=== PATIENT | female | born 1965 | race Caucasian/White ===

== ENCOUNTER → 2020-12-23 09:27 | Outpatient (BNVA) | payer SELFPAY | PROVIDERS: PCP Nurse Practitioner Family; Visit Provider Nurse Practitioner Family | DX: F41.9 Anxiety disorder, unspecified (principal); F32.9 Major depressive disorder, single episode, unspecified; E11.9 Type 2 diabetes mellitus without complications; M54.5 Low back pain; G89.29 Other chronic pain; I10 Essential (primary) hypertension; G47.00 Insomnia, unspecified | CPT/HCPCS: 80053; 80061; 83036; 84443; 85025 ==

== ENCOUNTER → 2021-03-21 09:35 | Outpatient (BNVA) | payer SELFPAY | PROVIDERS: PCP Nurse Practitioner Family; Visit Provider Nurse Practitioner Family | DX: E11.9 Type 2 diabetes mellitus without complications (principal); G89.29 Other chronic pain; I10 Essential (primary) hypertension; G47.00 Insomnia, unspecified; M54.50 Low back pain, unspecified | CPT/HCPCS: 80053; 80061; 83036; 84443; 85025 ==

== ENCOUNTER → 2021-06-21 09:47 | Outpatient (BNVA) | payer SELFPAY | PROVIDERS: PCP Nurse Practitioner Family; Visit Provider Nurse Practitioner Family | DX: E11.9 Type 2 diabetes mellitus without complications (principal) | CPT/HCPCS: 80053; 80061; 83036; 84443; 85025 ==

== ENCOUNTER → 2021-09-09 09:55 | Outpatient (BNVA) | payer SELFPAY | PROVIDERS: PCP Nurse Practitioner Family; Visit Provider Nurse Practitioner Family | DX: I10 Essential (primary) hypertension (principal); E11.9 Type 2 diabetes mellitus without complications; F41.9 Anxiety disorder, unspecified; F32.9 Major depressive disorder, single episode, unspecified; G89.29 Other chronic pain; G47.00 Insomnia, unspecified | CPT/HCPCS: 80053; 80061; 83036; 84443; 85025 ==

== ENCOUNTER → 2021-11-14 09:41 | Outpatient (BNVA) | payer SELFPAY | PROVIDERS: PCP Nurse Practitioner Family; Visit Provider Nurse Practitioner Family | DX: E11.9 Type 2 diabetes mellitus without complications (principal); F41.9 Anxiety disorder, unspecified; F32.9 Major depressive disorder, single episode, unspecified; G47.00 Insomnia, unspecified; I10 Essential (primary) hypertension; G89.29 Other chronic pain | CPT/HCPCS: 83036 ==

== ENCOUNTER → 2022-02-02 09:14 | Outpatient (BNVA) | payer SELFPAY | PROVIDERS: PCP Nurse Practitioner Family; Visit Provider Nurse Practitioner Family | DX: E11.9 Type 2 diabetes mellitus without complications (principal) | CPT/HCPCS: 80053; 83036 ==

== ENCOUNTER → 2022-08-14 11:29 | Outpatient (BNVA) | payer SELFPAY | PROVIDERS: PCP Nurse Practitioner Family; Visit Provider Nurse Practitioner Family | DX: E11.9 Type 2 diabetes mellitus without complications (principal); I10 Essential (primary) hypertension; G89.29 Other chronic pain; F41.9 Anxiety disorder, unspecified; F32.9 Major depressive disorder, single episode, unspecified; G47.00 Insomnia, unspecified | CPT/HCPCS: 80053; 80061; 83036; 84443; 85025 ==

== ENCOUNTER → 2022-11-06 09:18 | Outpatient (BNVA) | payer SELFPAY | PROVIDERS: PCP Nurse Practitioner Family; Visit Provider Nurse Practitioner Family | DX: F41.9 Anxiety disorder, unspecified (principal); F32.9 Major depressive disorder, single episode, unspecified; G89.29 Other chronic pain; E11.9 Type 2 diabetes mellitus without complications; I10 Essential (primary) hypertension; G47.00 Insomnia, unspecified | CPT/HCPCS: 80053; 80061; 83036; 84443; 85025 ==

== ENCOUNTER → 2023-01-29 09:49 | Outpatient (BNVA) | payer SELFPAY | PROVIDERS: PCP Nurse Practitioner Family; Visit Provider Nurse Practitioner Family | DX: E11.9 Type 2 diabetes mellitus without complications (principal); I10 Essential (primary) hypertension | CPT/HCPCS: 80053; 80061; 83036; 84443; 85025 ==

== ENCOUNTER → 2023-04-24 09:50 | Outpatient (BNVA) | payer SELFPAY | PROVIDERS: PCP Nurse Practitioner Family; Visit Provider Nurse Practitioner Family | DX: E11.9 Type 2 diabetes mellitus without complications (principal); I10 Essential (primary) hypertension; F41.9 Anxiety disorder, unspecified; F32.9 Major depressive disorder, single episode, unspecified | CPT/HCPCS: 80053; 80061; 83036; 84443; 85025 ==

== ENCOUNTER 2024-07-19 09:23 | Inpatient (IN) | payer SELFPAY ==
[2024-07-19] VITALS (16 sets, daily range): BP systolic 124–203; BP diastolic 68–96; PULSE 89–105; RESP 18–22; TEMP 36.8–37.6; O2SAT 89–95; BMI 36.6; BMI 40.5
--- NOTE | 2024-07-19 09:47 | XRR_ITS ---
PROCEDURE INFORMATION: Exam: XR Chest Exam date and time: 07/19/2024 9:55 AM Age: 59 years old Clinical indication: Cough and fever; Additional info: Fever, cough TECHNIQUE: Imaging protocol: Radiologic exam of the chest. Views: 1 view. COMPARISON: No relevant prior studies available. FINDINGS: Lungs: Patchy infiltrate involves both lung bases. The upper lung nichols are clear. Pleural spaces: Unremarkable. No pleural effusion. No pneumothorax. Heart/Mediastinum: Unremarkable. No cardiomegaly. Bones/joints: Unremarkable. XR/XR chest 1V portable [id number] IMPRESSION: Bibasilar pneumonia
[2024-07-19 10:14] LABS: Basophils # 0.1 10^3/uL (0.0-0.1); Basophils % 0.7 %; Eosinophils % 0.3 %; Hematocrit 39.4 % (36-47); Lymphocytes # 2.3 10^3/uL (0.8-4.8); Lymphocytes % 16.3 %; Mean Corpuscular HGB Conc 32.2 g/dL (30-55); Mean Corpuscular Hemoglobin 27.1 pg (27-33); Mean Platelet Volume 10.3 fL (7.4-10.4); Monocytes # 0.9 10^3/uL (0.2-0.9); Monocytes % 6.4 %; Neutrophils # 10.51 10^3/uL (1.8-7.7); Neutrophils % 74.7 %; Nucleated Red Blood Cells % 0 %; Platelet Count 417 10^3/cmm (157-399); Red Blood Count 4.69 10^6/uL (3.85-5.65); Red Cell Distribution Width 12.5 % (12.1-15.1); White Blood Count 14.07 10^3/uL (3.29-11.43)
--- NOTE | 2024-07-19 10:14 | W.ED.URI ---
HPI - URI/Sore Throat General: Chief Complaint: Upper Respiratory Infection Stated Complaint: cough Time Seen by Provider: 07/19/24 09:38 History of Present Illness: 59-year-old female with a history of obesity, diabetes, hypertension who presents emergency room with a cough and shortness of breath for the last couple of weeks. Has been worsening over the last couple days. She has developed fevers to 102 or 3 she says. She has no history of COPD. No smoking history. Some pleuritic type chest pains. She has had a productive cough. She is attempted [id number] medications which has not helped. Related Data Home Medications ?Medication ?Instructions ?Recorded ?Confirmed Curalin 180 180 mg PO DAILY 07/19/24 07/19/24 amino acids (Amino Acid capsule) 1 cap PO DAILY 07/19/24 07/19/24 magnesium carb,citrate,oxide 300 mg PO DAILY 07/19/24 07/19/24 (Magnesium Complex) omega-3 fatty acids 1,000 mg 1,000 mg PO DAILY 07/19/24 07/19/24 capsule (Super [place]-3) Allergies Allergy/AdvReac Type Severity Reaction Status Date / Time No Known Allergies Allergy Unverified 04/24/23 09:28 Review of Systems Narrative: Constitutional symptoms: Negative except as documented in HPI. Skin symptoms: Negative except as documented in HPI. Eye symptoms: Negative except as documented in HPI. ENMT symptoms: Negative except as documented in HPI. Respiratory symptoms: Negative except as documented in HPI. Cardiovascular symptoms: Negative except as documented in HPI. Gastrointestinal symptoms: Negative except as documented in HPI. Genitourinary symptoms: Negative except as documented in HPI. Musculoskeletal symptoms: Negative except as documented in HPI. Neurologic symptoms: Negative except as documented in HPI. Psychiatric symptoms: Negative except as documented in HPI. Endocrine symptoms: Negative except as documented in HPI. PFSH ED PFSH: Medical History Insomnia Anxiety and depression Type 2 diabetes mellitus Essential hypertension Surgical History History of hernia surgery Family History Father Hypertension Social History (Reviewed 04/24/23 @ 10:03 by RICARDO Farrell Smoking and tobacco/nicotine status: never used tobacco/nicotine Second hand smoke exposure: Yes Alcohol intake: never Substance/Drug Use: never Adopted: No Caregiver/support person: No Lives independently: Yes Household members: spouse Housing: House Marital status: Number of children: 6 service: No Physical Exam Narrative: EXAM NARRATIVE: General: Alert, no acute distress. Skin: Warm, dry. Head: Normocephalic, atraumatic. Neck: Supple, trachea midline. Eye: Extraocular movements are intact. Ears, nose, mouth and throat: mucosa moist. Cardiovascular: Regular, Normal peripheral perfusion. Respiratory: Lungs are clear to auscultation, respirations are non-labored, breath sounds are equal, Symmetrical chest wall expansion. Gastrointestinal: Soft, Nontender, Non distended Musculoskeletal: Normal ROM, no deformity. Neurological: Alert and oriented, No focal neurological deficit observed. Psychiatric: Cooperative, appropriate mood & affect. Course Vital Signs: Vital signs: Vital Signs Temperature 98.2 F 07/19/24 09:45 Pulse Rate 92 07/19/24 11:18 Respiratory Rate 18 07/19/24 09:45 Blood Pressure 161/68 07/19/24 11:18 Pulse Oximetry 90 07/19/24 11:18 Oxygen Delivery Me thod Room Air 07/19/24 09:45 MDM - URI/Sore Throat Medical Decision Making Differential diagnosis for patient with shortness of breath includes but is not limited to and based on the above HPI, review of systems and physical exam: Pneumonia. Bronchitis. Asthma or COPD with acute exacerbation. Acute coronary syndrome / MD. Pulmonary embolism. Anxiety. Congestive heart failure. Viral infections including influenza and Covid-19. Atrial fibrillation. Anxiety. Pleural effusion. Pneumothorax. Orders placed to evaluate differential diagnosis based on the above differential, HPI and physical exam Chest x-ray: Bibasilar pneumonia. This was reviewed and interpreted by myself the emergency room physician. I also reviewed the radiology report. Lab Review: Laboratory results were reviewed and interpreted by myself the emergency room physician. Mild leukocytosis. No anemia. No renal failure. Her glucose is bit elevated at 297. Flu COVID and RSV are negative. I reviewed the patient's medical record. Reexamination: Patient walked briefly. O2 sats dropped into the mid 80s. Upon laying back in the bed she is fairly dyspneic. Tachypneic. Mild increased work of breathing. Consultation: I spoke with Dr. Clyde Coates who agrees to admission. Assessment and plan: Pneumonia Hypoxemia ?IV Levaquin and 1 L normal saline bolus. Blood cultures and lactate were sent. Lactate is negative. Patient does have a bit of a white count. However I do not feel she meets criteria for sepsis at this time. No further fluids were given. She is requiring oxygen and dyspneic with exertion so she is being admitted for continued IV antibiotics and for oxygen support. -I discussed the patient with the hospitalist on-call who is admitting the patient. - Discussed findings and plan with patient. Answered any questions. - All laboratory values were reviewed and interpreted personally by myself, the ER physician - All imaging was reviewed and interpreted personally by myself, the ER physician. - Evaluation and treatment of this problem were appropriate in the emergency setting Lab Data 07/19/24 10:01 07/19/24 10:01 Radiology Impressions Chest X-Ray 07/19/24 09:47 IMPRESSION: Bibasilar pneumonia Laboratory Results WBC 14.07 10^3/uL (3.29-11.43) H 07/19/24 10:01 RBC 4.69 10^6/uL (3.85-5.65) 07/19/24 10:01 Hgb 12.70 g/dL (11.27-16.99) 07/19/24 10:01 Hct 39.4 % (36-47) 07/19/24 10:01 MCV 84.0 fl (85-98) L 07/19/24 10:01 MCH 27.1 pg (27-33) 07/19/24 10:01 MCHC 32.2 g/dL (30-55) 07/19/24 10:01 RDW 12.5 % (12.1-15.1) 07/19/24 10:01 Plt Count 417 10^3/cmm (157-399) H 07/19/24 10:01 MPV 10.3 fL (7.4-10.4) 07/19/24 10:01 Neut % (Auto) 74.7 % 07/19/24 10:01 Lymph % (Auto) 16.3 % 07/19/24 10:01 Hinds % (Auto) 6.4 % 07/19/24 10:01 Eos % (Auto) 0.3 % 07/19/24 10:01 Baso % (Auto) 0.7 % 07/19/24 10:01 Neut # (Auto) 10.51 10^3/uL (1.8-7.7) H 07/19/24 10:01 Lymph # (Auto) 2.3 10^3/uL (0.8-4.8) 07/19/24 10:01 Hinds # (Auto) 0.9 10^3/uL (0.2-0.9) 07/19/24 10:01 Eos # (Auto) 0.0 10^3/uL (0.0-0.8) 07/19/24 10:01 Baso # (Auto) 0.1 10^3/uL (0.0-0.1) 07/19/24 10:01 Nucleated RBC % (auto) 0 % 07/19/24 10:01 Nucleated RBCs # 0.0 /100WBC 07/19/24 10:01 Sodium 134 mmol/L (136-145) L 07/19/24 10:01 Potassium 4.0 mmol/L (3.5-5.1) 07/19/24 10:01 Chloride 96 mmol/L (98-107) L 07/19/24 10:01 Carbon Dioxide 25 mmol/L (22-29) 07/19/24 10:01 Anion Gap 17.0 (5-19) 07/19/24 10:01 BUN 8 mg/dL (8-23) 07/19/24 10:01 Creatinine 0.6 mg/dL (0.5-0.9) 07/19/24 10:01 GFR Calculation 101.6 mL/min (90-130) 07/19/24 10:01 Glucose 297 mg/dL (65-115) H 07/19/24 10:01 Calculated Osmolality 287 mOsm/kg (285-295) 07/19/24 10:01 Lactic Acid 1.3 mmol/L (0.5-2.2) 07/19/24 10:01 Calcium 9.0 mg/dL (8.5-10.5) 07/19/24 10:01 Total Bilirubin 0.5 mg/dL (0.15-1.2) 07/19/24 10:01 AST 13 U/L (0-32) 07/19/24 10:01 ALT 6 U/L (0-33) 07/19/24 10:01 Alkaline Phosphatase 42 U/L (35-105) 07/19/24 10:01 Total Protein 7.6 g/dL (6.6-8.7) 07/19/24 10:01 Albumin 3.5 g/dL (3.5-5.2) 07/19/24 10:01 Globulin 4.1 g/dL (1.3-4.6) 07/19/24 10:01 Influenza A (PCR) Negative (Negative) 07/19/24 09:57 Influenza Type B (PCR) Negative (Negative) 07/19/24 09:57 RSV (PCR) Negative (Negative) 07/19/24 09:57 SARS-CoV-2 (PCR) Negative (Negative) 07/19/24 09:57 All radiology interpretation(s) finalized by discharge Discharge Plan Discharge Patient Disposition: Admitted As Inpatient Clinical Impression: Community acquired bacterial pneumonia, Hypoxemia Condition: Stable Coding Level of Care Code ED Mechatronics Technician for Marychuy Banks
[2024-07-19 10:36] LABS: Alanine Aminotransferase 6 U/L (0-33); Albumin Level 3.5 g/dL (3.5-5.2); Alkaline Phosphatase 42 U/L (35-105); Aspartate Amino Transferase 13 U/L (0-32); Blood Urea Nitrogen 8 mg/dL (8-23); Carbon Dioxide 25 mmol/L (22-29); Chloride 96 mmol/L (98-107); Globulin 4.1 g/dL (1.3-4.6); Glomerular Filtration Rate 101.6 mL/min (90-130); Glucose 297 mg/dL (65-115); Lactic Sepsis W/Reflex 1.3 mmol/L (0.5-2.2); Osmolality Calculated 287 mOsm/kg (285-295); Sodium 134 mmol/L (136-145); Total Bilirubin 0.5 mg/dL (0.15-1.2); Total Protein 7.6 g/dL (6.6-8.7)
[2024-07-19 10:38] LABS: Influenza A NEGATIVE (Negative); Influenza B NEGATIVE (Negative); Respiratory Syncytial Virus Ce NEGATIVE (Negative); SARS-CoV-2 PCR NEGATIVE (Negative)
--- NOTE | 2024-07-19 11:03 | PC.PHAR ---
Pt takes only otc supplements. Removed from list are the following: Bupropion HCL SR 100mg bid, Pristiq 50mg daily, Glimepiride 4mg bid, Lisinopril 20mg daily, Metformin 1,000mg bid, and Trazodone 150mg at bedtime. Last known fill 08/16/23 on the [facility].
[2024-07-19] MEDS: levofloxacin-dextrose 5 % 750 MG/150 ML PREMIX 100 MG IV (11:34)
[2024-07-19] MEDS: sodium chloride 0.9% 1,000 ML 999 ML IV (11:36)
[2024-07-19 14:39] LABS: Procalcitonin 0.11 ng/mL (0-0.5)
[2024-07-19] MEDS: enoxaparin 40 mg/0.4 mL Syringe SUBCUT (15:24)
--- NOTE | 2024-07-19 16:55 | PM.HP ---
Providers/Chief Complaint Admitting Physician: Clyde Coates Primary Care Provider: JILLIAN Farrell Chief Complaint: cough, congestion History of Present Illness 59-year-old female with a past medical history of diabetes mellitus type 2, hypertension, anxiety, depression, and insomnia, presents with cough and shortness of breath for the past two weeks. Patient describes productive cough with yellow sputum. Associated symptoms include fever (highest recorded temperature of 102.4?F), decreased appetite, and epigastric abdominal pain. Patient denies chest pain, nausea, or vomiting. Patient noted one episode of diarrhea. Noted recent travel to [place] and [place] two weeks ago. Patient was taking metformin and Januvia for diabetes, but stopped and was using herbs. Patient also stopped taking lisinopril for hypertension, as well as glimepiride, gabapentin, Wellbutrin, and trazodone. Blood sugars have been close to and sometimes over 300 since becoming ill, previously 100-120. Initial evaluation in the ER revealed: - Laboratory Findings: WBC 14.0 (elevated), hemoglobin 12 g/dL, hematocrit 39%, platelets 417, sodium 134 mEq/L, potassium 4.0 mEq/L, chloride 96 mEq/L, bicarbonate 25 mEq/L, BUN 8 mg/dL, creatinine 0.6 mg/dL, liver function tests normal, procalcitonin 0.11 ng/mL, influenza negative, RSV negative, COVID-19 negative, blood glucose 297 mg/dL. - Imaging Studies: Chest x-ray showing bibasilar pneumonia with patchy infiltrates in both lungs. Upper lung nichols clear. Patient was treated with a first dose of Levaquin in the ER and remains symptomatic. Review of Systems General: Reports: 10 or more systems reviewed and unremarkable except in HPI and below Medications/Allergies Home Medications ?Medication ?Instructions ?Recorded ?Confirmed ?Last Taken ?Type Curalin 180 180 mg PO DAILY 07/19/24 07/19/24 07/18/24 History amino acids (Amino Acid capsule) 1 cap PO DAILY 07/19/24 07/19/24 07/18/24 History magnesium carb,citrate,oxide 300 mg PO DAILY 07/19/24 07/19/24 07/18/24 History (Magnesium Complex) omega-3 fatty acids 1,000 mg 1,000 mg PO DAILY 07/19/24 07/19/24 07/18/24 History capsule (Super [place]-3) Allergies Allergy/AdvReac Type Severity Reaction Status Date / Time No Known Allergies Allergy Unverified 04/24/23 09:28 PFSH Acute PFSH: Medical History Insomnia Anxiety and depression Type 2 diabetes mellitus Essential hypertension Surgical History History of hernia surgery Family History Father Hypertension Social History Smoking and tobacco/nicotine status: never used tobacco/nicotine Second hand smoke exposure: Yes Alcohol intake: never Substance/Drug Use: never Adopted: No Caregiver/support person: No Lives independently: Yes Household members: spouse Housing: House Marital status: Number of children: 6 service: No Vitals/I&O/Wt Last Vital Signs Temp 98.2 F 07/19/24 09:45 Pulse 102 H 07/19/24 15:50 Resp 18 07/19/24 09:45 BP 203/89 07/19/24 15:50 Pulse Ox 93 07/19/24 16:27 O2 Del Method Nasal Cannula 07/19/24 16:27 O2 Flow Rate 2 07/19/24 16:27 07/19/24 07/19/24 07/19/24 06:59 14:59 22:59 Intake Total 1150 / 1150 Balance 1150 / 1150 Weight last 48 hrs Weight 90.718 kg Physical Exam Narrative: - General: Mild distress. - HEENT: Normocephalic/atraumatic. PERRLA. EOMI. No scleral icterus. Mucous membranes moist. - Neck: Supple. No lymphadenopathy. - Cardiovascular: Regular rate and rhythm. No murmurs, rubs, or gallops. - Lungs: Bibasilar crackles. No wheezes or rhonchi. - Neurological: Alert and oriented. Speech clear. Strength 5/5 in all extremities. - Skin: Warm and dry. No rashes or lesions. Data 07/19/24 10:01 07/19/24 10:01 Micro: Microbiology 07/19/24 10:06 Blood Culture - Preliminary Blood SPECIMEN COLLECTED 07/19/24 10:01 Blood Culture - Preliminary Blood SPECIMEN COLLECTED A&P Assessment and plan (1) Hypoxemia: (2) Community acquired bacterial pneumonia: (3) Insomnia: Qualifiers: Insomnia type: unspecified Qualified Code(s): G47.00 - Insomnia, unspecified (4) Anxiety and depression: (5) Type 2 diabetes mellitus: Qualifiers: Diabetes mellitus adjunct faculty for medical terminology insulin use: without adjunct faculty for medical terminology use Diabetes mellitus complication status: without complication Qualified Code(s): E11.9 - Type 2 diabetes mellitus without complications Plan 59-year-old with poorly controlled diabetes, untreated hypertension, who presents with a 2-week history of cough, shortness of breath, fever, and productive yellow sputum. Patient has stopped all medications including antihyperglycemics and antihypertensives. Chest x-ray confirms bibasilar pneumonia with patchy infiltrates. Labs show leukocytosis, hyperglycemia, and mild hyponatremia. Patient reports recent travel to [place] and [place]. Was noted to be hypoxic in ER with exertion requiring 2l via NC. She was started on levaquin and admitted. Community-Acquired Pneumonia - Bibasilar pneumonia with patchy infiltrates on chest x-ray, accompanied by fever, productive cough with yellow sputum, and leukocytosis. - Procalcitonin 0.11 ng/mL. - Negative for influenza, RSV, and COVID-19. Plan: Blood cultures (already pending) Sputum culture and Gram stain Follow-up chest x-ray in 6-8 weeks if clinically improved Empiric antibiotics: Levaquin 750 mg daily for 5-7 days based on clinical response Supplemental oxygen as needed to maintain SpO? >92% acetaminophen PRN for fever/pain LR at 50 ml /hr Uncontrolled Type 2 Diabetes Mellitus - Patient discontinued metformin and Januvia, with blood glucose readings approaching 300 mg/dL during illness. HbA1c of 6.8% in April 2023 suggests previously adequate control. Plan: Monitor blood glucose QACHS Check A1c in AM May consider resuming prior regimen Will consider basal insulin if hyperglycemia persists Blood glucose goal 140-180 mg/dL Severe Hypertension - Severely elevated blood pressure (203/89 mmHg) in setting of medication non-adherence. Dx: Restart lisinopril 20mg PO daily Add amlodipine 5mg PO daily if BP remains >160/100 after 24 hours Hydralazine 10 IV PRN Medication Non-adherence - Patient has discontinued all prescribed medications, contributing to current presentation. Plan: [place] on medication adherence DVT prophylaxis - Lovenox Chronic Problems Anxiety and Depression - Will d/w paitent if wanting to resume prior regimen PDMP PDMP Reviewed: Not Reviewed Attestations Medical Necessity Statement*: Anticiapte Over 2 midnight stay for eval and treatment of above Coding Level of Care Code Acute Code for g Fwd Diagnoses Hypoxemia R09.02 Community acquired bacterial pneumonia J15.9 Insomnia, unspecified type G47.00 Insomnia type: unspecified Anxiety and depression F41.9; F32.9 Type 2 diabetes mellitus without complication, without long-term current use of insulin E11.9 Diabetes mellitus snf insulin use: without adjunct faculty for medical terminology use Diabetes mellitus complication status: without complication
[2024-07-19] MEDS: ipratropium-albuterol 3 mL Neb INHALATION (17:15)
[2024-07-19 17:28] LABS: Glucose Point of Care 226 mg/dL (70-110)
[2024-07-19] MEDS: lactated ringers 1,000 ML 50 ML IV (17:56)
[2024-07-19] MEDS: lisinopril 20 mg Tablet PO (17:56)
[2024-07-19] MEDS: guaiFENesin-dextromethorphan UDC 10 mL 5 ML PO (18:05)
[2024-07-19] MEDS: insulin lispro 100 unit/1 mL SUBCUT (18:06)
[2024-07-19 21:15] LABS: Glucose Point of Care 199 mg/dL (70-110)
[2024-07-20] VITALS (9 sets, daily range): BP systolic 133–177; BP diastolic 73–83; PULSE 74–93; RESP 16–18; TEMP 36.8–37.3; O2SAT 91–94
[2024-07-20 04:36] LABS: Estmated Average Glucose 209; Hemoglobin A1C 8.9 % (4.0-6.0)
[2024-07-20 04:41] LABS: Alanine Aminotransferase 8 U/L (0-33); Albumin Level 3.2 g/dL (3.5-5.2); Alkaline Phosphatase 40 U/L (35-105); Anion Gap 15.8 (5-19); Aspartate Amino Transferase 13 U/L (0-32); Blood Urea Nitrogen 7 mg/dL (8-23); Calcium 8.7 mg/dL (8.5-10.5); Carbon Dioxide 26 mmol/L (22-29); Chloride 99 mmol/L (98-107); Globulin 3.9 g/dL (1.3-4.6); Glomerular Filtration Rate 125.4 mL/min (90-130); Glucose 234 mg/dL (65-115); Osmolality Calculated 290 mOsm/kg (285-295); Potassium 3.8 mmol/L (3.5-5.1); Sodium 137 mmol/L (136-145); Total Bilirubin 0.4 mg/dL (0.15-1.2); Total Protein 7.1 g/dL (6.6-8.7)
[2024-07-20 06:38] LABS: Glucose Point of Care 248 mg/dL (70-110)
[2024-07-20] MEDS: insulin lispro 100 unit/1 mL SUBCUT ×3 (08:21→17:36)
[2024-07-20] MEDS: guaiFENesin-dextromethorphan UDC 10 mL 5 ML PO ×4 (08:21→23:58)
[2024-07-20] MEDS: lisinopril 20 mg Tablet PO (08:21)
[2024-07-20 08:49] LABS: Adenovirus Not Detected (NOT DETECT); Chlamydia Pneumoniae Not Detected (NOT DETECT); Human Metapneumovirus Not Detected (NOT DETECT); Human Rhinovirus/Enterovirus Not Detected (NOT DETECT); Influenza A Not Detected (NOT DETECT); Influenza A H1 Not Detected (NOT DETECT); Influenza A H1-2009 Not Detected (NOT DETECT); Influenza A H3 Not Detected (NOT DETECT); Influenza B Not Detected (NOT DETECT); Mycoplasma Pneumoniae Not Detected (NOT DETECT); Parainfluenza Virus Type 1 Not Detected (NOT DETECT); Parainfluenza Virus Type 2 Not Detected (NOT DETECT); Parainfluenza Virus Type 3 Not Detected (NOT DETECT); Parainfluenza Virus Type 4 Not Detected (NOT DETECT); Respiratory Syncytial Virus A Not Detected (NOT DETECT); Respiratory Syncytial Virus B Not Detected (NOT DETECT); SARS-COV-2 Not Detected (NOT DETECT)
[2024-07-20 08:51] LABS: Coronavirus 229E,HKU1,NL63,OC4 Detected (NOT DETECT)
[2024-07-20 11:12] LABS: Glucose Point of Care 143 mg/dL (70-110)
--- NOTE | 2024-07-20 14:10 | P.PN_ITS ---
Subjective 2 Subjective: 59-year-old female with a past medical h istory of diabetes mellitus type 2, hypertension, anxiety, depression, and insomnia, presents with cough and shortness of breath for the past two weeks. Patient describes productive cough with yellow sputum. Associated symptoms include fever (highest recorded temperature of 102.4?F), decreased appetite, and epigastric abdominal pain. Patient denies chest pain, nausea, or vomiting. Patient noted one episode of diarrhea. Noted recent travel to [place] and [place] two weeks ago. Patient was taking metformin and Januvia for diabetes, but stopped and was using herbs. Patient also stopped taking lisinopril for hypertension, as well as glimepiride, gabapentin, Wellbutrin, and trazodone. Blood sugars have been close to and sometimes over 300 since becoming ill, previously 100-120. Initial evaluation in the ER revealed: - Laboratory Findings: WBC 14.0 (elevate d), hemoglobin 12 g/dL, hematocrit 39%, platelets 417, sodium 134 mEq/L, potassium 4.0 mEq/L, chloride 96 mEq/L, bicarbonate 25 mEq/L, BUN 8 mg/dL, creatinine 0.6 mg/dL, liver function tests normal, procalcitonin 0.11 ng/mL, influenza negative, RSV negative, COVID-19 negative, blood glucose 297 mg/dL. - Imaging Studies: Chest x-ray showing b ibasilar pneumonia with patchy infiltrates in both lungs. Upper lung nichols clear. Patient was requiring supplemental oxygen in the emergency room with exertion of 1 to 2 L. She was admitted. Started on Levaquin 750 mg daily. Respiratory panel was done which showed coronavirus to be positive. A1c was found to be 8.9%. Patient was started on sliding scale insulin. 07/20 Overnight she stated that she did feel somewhat better however continued to have a cough. Productive of yellow sputum. Remained on 2 L of O2 via nasal cannula. Plan to continue to wean patient's oxygen as tolerated. Sputum culture was sent. Plan to discharge patient once able to wean oxygen. Medications: Reviewed: Yes Vitals/I&O/Wt Last Vital Signs Temp 98.4 F 07/20/24 11:17 Pulse 77 07/20/24 11:17 Resp 16 07/20/24 11:17 BP 152/77 07/20/24 11:17 Pulse Ox 91 07/20/24 11:17 O2 Del Method Nasal Cannula 07/20/24 11:17 O2 Flow Rate 2 07/20/24 11:17 07/19/24 07/20/24 07/20/24 22:59 06:59 14:59 Intake Total 1750 / 1750 480 / 480 Balance 1750 / 1750 480 / 480 Weight last 48 hrs Weight 101.423 kg Weight 100.471 kg Weight 90.718 kg Physical Exam 2 Narrative: - General: NAD - HEENT: Normocephalic/atraumatic. PERRL A. EOMI. No scleral icterus. Mucous membranes moist. - Neck: Supple. No lymphadenopathy. - Cardiovascular: Regular rate and rhyth m. No murmurs, rubs, or gallops. - Lungs: Bibasilar crackles. No wheezes or rhonchi. - Neurological: Alert and oriented. Spee ch clear. Strength 5/5 in all extremities. - Skin: Warm and dry. No rashes or lesio ns. Data 07/19/24 10:01 07/20/24 03:02 Micro: Microbiology 07/19/24 10:06 Blood Culture - Preliminary Blood NEGATIVE TO DATE 07/19/24 10:01 Blood Culture - Preliminary Blood NEGATIVE TO DATE A&P Assessment and plan (1) Hypoxemia: (2) Community acquired bacterial pneumonia: (3) Insomnia: Qualifiers: Insomnia type: unspecified Qualified Code(s): G47.00 - Insomnia, unspecified (4) Anxiety and depression: (5) Type 2 diabetes mellitus: Qualifiers: Diabetes mellitus shelter insulin use: without intermodal truck driver use Diabetes mellitus complication status: without complication Qualified Code(s): E11.9 - Type 2 diabetes mellitus without complications Plan 59-year-old female with poorly controlled diabetes mellitus type 2, untreated hypertension, anxiety, depression, and insomnia who presents with a 2-week history of productive cough, shortness of breath, fever, and epigastric pain. Patient discontinued all medications including antihyperglycemics and antihypertensives. Chest x-ray confirms bibasilar pneumonia with patchy infiltrates. Labs show leukocytosis (WBC 14.0), hyperglycemia (glucose 297), and mild hyponatremia (Na 134). Respiratory panel positive for coronavirus. A1c 8.9%. Patient required supplemental oxygen (1-2L) with exertion in the ER. On day 2, patient reports feeling somewhat better but continues to have productive yellow cough and remains on 2L oxygen. # Community-Acquired Pneumonia / Coronavirus + Bibasilar pneumonia with patchy infiltrates on chest x-ray, accompanied by fever, productive cough with yellow sputum, and leukocytosis. Respiratory panel positive for coronavirus ([id number]). Patient showing mild clinical improvement on day 2 but continues to require supplemental oxygen. Plan: - Blood cultures (pending) - Sputum culture and Gram stain (sent) - Procalcitonin level (0.11 ng/mL, low likelihood of bacterial infection) - Follow-up chest x-ray in 6-8 weeks if clinically improved Tx: - Continue Levofloxacin 750 mg daily given duration of symptoms. - Supplemental oxygen via nasal cannula, continue at 2L with plan to wean as tolerated - Acetaminophen PRN for fever/pain - Incentive spirometry e - D/C IVF # Uncontrolled Type 2 Diabetes Mellitus Patient discontinued metformin and Januvia, with blood glucose readings approaching 300 mg/dL during illness. A1c 8.9% indicates poor control. Plan: - Monitor blood glucose QACHS - A1c already checked (8.9%) Tx: - Continue sliding scale insulin while inpatient - Agreeable to resume sliding scale at discharge - Will add Lantus 10 units at bedtime. - Blood glucose goal 140-180 mg/dL during hospitalization - Diabetes education prior to discharge # Hypertension Elevated blood pressure in setting of medication non-adherence. - Monitor blood pressure q4h Tx: - Continue lisinopril 20 mg PO daily - Add amlodipine 5 mg PO daily if BP remains >160/100 after 24 hours - Hydralazine 10 mg IV PRN for SBP >180 mmHg Medication Non-adherence - Patient has discontinued all prescribed medications, contributing to current presentation. Plan: [place] on medication adherence DVT prophylaxis - Lovenox Chronic Problems Anxiety and Depression - Will d/w paitent if wanting to resume prior regimen PDMP PDMP Reviewed: Not Reviewed Attestations 2 Medical Necessity Statement*: Anticiapte Over 2 midnight stay for eval and treatment of above Coding Level of Care Code Acute Code for [facility] Fwd Diagnoses Hypoxemia R09.02 Community acquired bacterial pneumonia J15.9 Insomnia, unspecified type G47.00 Insomnia type: unspecified Anxiety and depression F41.9; F32.9 Type 2 diabetes mellitus without complication, without long-term current use of insulin E11.9 Diabetes mellitus intermodal truck driver insulin use: without shelter use Diabetes mellitus complication status: without complication
[2024-07-20] MEDS: enoxaparin 40 mg/0.4 mL Syringe SUBCUT (14:17)
[2024-07-20 16:38] LABS: Glucose Point of Care 149 mg/dL (70-110)
[2024-07-20] MEDS: levofloxacin-dextrose 5 % 750 MG/150 ML PREMIX 100 MG IV (17:37)
[2024-07-20] MEDS: insulin glargine 100 units/1 mL 10 UNIT SUBCUT (20:39)
[2024-07-20 20:48] LABS: Glucose Point of Care 183 mg/dL (70-110)
[2024-07-21] VITALS (9 sets, daily range): BP systolic 133–178; BP diastolic 76–89; PULSE 81–98; RESP 17–20; TEMP 36.8–37.3; O2SAT 87–96
[2024-07-21 06:09] LABS: Alanine Aminotransferase 10 U/L (0-33); Albumin Level 3.1 g/dL (3.5-5.2); Alkaline Phosphatase 37 U/L (35-105); Anion Gap 15.9 (5-19); Aspartate Amino Transferase 16 U/L (0-32); Blood Urea Nitrogen 9 mg/dL (8-23); Calcium 8.9 mg/dL (8.5-10.5); Carbon Dioxide 24 mmol/L (22-29); Chloride 99 mmol/L (98-107); Globulin 3.7 g/dL (1.3-4.6); Glomerular Filtration Rate 162.3 mL/min (90-130); Glucose 182 mg/dL (65-115); Osmolality Calculated 283 mOsm/kg (285-295); Potassium 3.9 mmol/L (3.5-5.1); Sodium 135 mmol/L (136-145); Total Bilirubin 0.3 mg/dL (0.15-1.2); Total Protein 6.8 g/dL (6.6-8.7)
[2024-07-21] MEDS: insulin lispro 100 unit/1 mL SUBCUT ×2 (08:14→12:43)
[2024-07-21] MEDS: lisinopril 20 mg Tablet PO (08:15)
[2024-07-21] MEDS: guaiFENesin-dextromethorphan UDC 10 mL 5 ML PO ×2 (08:23→14:24)
--- NOTE | 2024-07-21 11:26 | P.PN_ITS ---
Subjective 2 Subjective: 59-year-old female with a past medical h istory of diabetes mellitus type 2, hypertension, anxiety, depression, and insomnia, presents with cough and shortness of breath for the past two weeks. Patient describes productive cough with yellow sputum. Associated symptoms include fever (highest recorded temperature of 102.4?F), decreased appetite, and epigastric abdominal pain. Patient denies chest pain, nausea, or vomiting. Patient noted one episode of diarrhea. Noted recent travel to [place] and [place] two weeks ago. Patient was taking metformin and Januvia for diabetes, but stopped and was using herbs. Patient also stopped taking lisinopril for hypertension, as well as glimepiride, gabapentin, Wellbutrin, and trazodone. Blood sugars have been close to and sometimes over 300 since becoming ill, previously 100-120. Initial evaluation in the ER revealed: - Laboratory Findings: WBC 14.0 (elevate d), hemoglobin 12 g/dL, hematocrit 39%, platelets 417, sodium 134 mEq/L, potassium 4.0 mEq/L, chloride 96 mEq/L, bicarbonate 25 mEq/L, BUN 8 mg/dL, creatinine 0.6 mg/dL, liver function tests normal, procalcitonin 0.11 ng/mL, influenza negative, RSV negative, COVID-19 negative, blood glucose 297 mg/dL. - Imaging Studies: Chest x-ray showing b ibasilar pneumonia with patchy infiltrates in both lungs. Upper lung nichols clear. Patient was requiring supplemental oxygen in the emergency room with exertion of 1 to 2 L. She was admitted. Started on Levaquin 750 mg daily. Respiratory panel was done which showed coronavirus to be positive. A1c was found to be 8.9%. Patient was started on sliding scale insulin. 07/20 Overnight she stated that she did feel somewhat better however continued to have a cough. Productive of yellow sputum. Remained on 2 L of O2 via nasal cannula. Plan to continue to wean patient's oxygen as tolerated. Sputum culture was sent. Plan to discharge patient once able to wean oxygen. 07/21 Patient continued to improve. Was wanting to be discharge home on oxygen which was arranged. Emperically was continued on oral antibiotics at discharge. Discussed with her to follow up with PCP after discharge. Medications: Reviewed: Yes Vitals/I&O/Wt Last Vital Signs Temp 98.3 F 07/21/24 11:15 Pulse 98 07/21/24 11:15 Resp 19 H 07/21/24 11:15 BP 178/86 07/21/24 11:15 Pulse Ox 96 07/21/24 11:15 O2 Del Method Nasal Cannula 07/21/24 11:15 O2 Flow Rate 2 07/21/24 10:40 07/20/24 07/21/24 07/21/24 22:59 06:59 14:59 Intake Total 510.000 / 1890.000 240 / 240 Balance 510.000 / 1890.000 240 / 240 Weight last 48 hrs Weight 102.965 kg Weight 101.423 kg Weight 100.471 kg Physical Exam 2 Narrative: - General: NAD - HEENT: Normocephalic/atraumatic. PERRL A. EOMI. No scleral icterus. Mucous membranes moist. - Neck: Supple. No lymphadenopathy. - Cardiovascular: Regular rate and rhyth m. No murmurs, rubs, or gallops. - Lungs: Bibasilar crackles. No wheezes or rhonchi. - Neurological: Alert and oriented. Spee ch clear. Strength 5/5 in all extremities. - Skin: Warm and dry. No rashes or lesio ns. Data 07/19/24 10:01 07/21/24 05:21 Micro: Microbiology 07/20/24 06:27 Gram Stain - Final Sputum - Expectorated Sputum Sputum Culture - Preliminary 07/19/24 10:06 Blood Culture - Preliminary Blood NEGATIVE TO DATE 07/19/24 10:01 Blood Culture - Preliminary Blood NEGATIVE TO DATE A&P Assessment and plan (1) Hypoxemia: (2) Community acquired bacterial pneumonia: (3) Insomnia: Qualifiers: Insomnia type: unspecified Qualified Code(s): G47.00 - Insomnia, unspecified (4) Anxiety and depression: (5) Type 2 diabetes mellitus: Qualifiers: Diabetes mellitus complication status: without complication Diabetes mellitus laborer marine terminal insulin use: without laborer marine terminal use Qualified Code(s): E11.9 - Type 2 diabetes mellitus without complications Plan 59-year-old female with poorly controlled diabetes mellitus type 2, untreated hypertension, anxiety, depression, and insomnia who presents with a 2-week history of productive cough, shortness of breath, fever, and epigastric pain. Patient discontinued all medications including antihyperglycemics and antihypertensives. Chest x-ray confirms bibasilar pneumonia with patchy infiltrates. Labs show leukocytosis (WBC 14.0), hyperglycemia (glucose 297), and mild hyponatremia (Na 134). Respiratory panel positive for coronavirus. A1c 8.9%. Patient required supplemental oxygen (1-2L) with exertion in the ER. On day 2, patient reports feeling somewhat better but continues to have productive yellow cough and remains on 2L oxygen. # Community-Acquired Pneumonia / Coronavirus + Bibasilar pneumonia with patchy infiltrates on chest x-ray, accompanied by fever, productive cough with yellow sputum, and leukocytosis. Respiratory panel positive for coronavirus ([id number]). Patient showing mild clinical improvement on day 2 but continues to require supplemental oxygen. Plan: - Blood cultures (pending) - Sputum culture and Gram stain (sent) - Procalcitonin level (0.11 ng/mL, low likelihood of bacterial infection) - Follow-up chest x-ray in 6-8 weeks if clinically improved Tx: - Continue Levofloxacin 750 mg daily given duration of symptoms. - Supplemental oxygen via nasal cannula, continue at 2L with plan to wean as tolerated - Acetaminophen PRN for fever/pain - Incentive spirometry e - D/C IVF - Home oxygen eval toda # Uncontrolled Type 2 Diabetes Mellitus Patient discontinued metformin and Januvia, with blood glucose readings approaching 300 mg/dL during illness. A1c 8.9% indicates poor control. Plan: - Monitor blood glucose QACHS - A1c already checked (8.9%) Tx: - Continue sliding scale insulin while inpatient - Agreeable to resume home regimen at discharge - Will add Lantus 10 units at bedtime during stay however wanted to resume oral - Blood glucose goal 140-180 mg/dL during hospitalization - Diabetes education # Hypertension Elevated blood pressure in setting of medication non-adherence. - Monitor blood pressure q4h Tx: - Continue lisinopril 20 mg PO daily - Add amlodipine 5 mg PO daily if BP remains >160/100 after 24 hours - Hydralazine 10 mg IV PRN for SBP >180 mmHg Medication Non-adherence - Patient has discontinued all prescribed medications, contributing to current presentation. Plan: [place] on medication adherence DVT prophylaxis - Lovenox Chronic Problems Anxiety and Depression Disposition: Patient wanted to be discharged today. Discharge orders placed pending home oxygen eval and arrangement. PDMP PDMP Reviewed: Not Reviewed Attestations 2 Medical Necessity Statement*: anticipate discharge today if able to arrange home oxygen. Coding Level of Care Code Acute Code for Chg Fwd Diagnoses Hypoxemia R09.02 Community acquired bacterial pneumonia J15.9 Insomnia, unspecified type G47.00 Insomnia type: unspecified Anxiety and depression F41.9; F32.9 Type 2 diabetes mellitus without complication, without long-term current use of insulin E11.9 Diabetes mellitus complication status: without complication Diabetes mellitus laborer marine terminal insulin use: without jail use
[2024-07-21 12:04] LABS: Glucose Point of Care 174 mg/dL (70-110)
[2024-07-21] MEDS: enoxaparin 40 mg/0.4 mL Syringe SUBCUT (14:25)
[2024-07-21 16:52] LABS: Glucose Point of Care 180 mg/dL (70-110)
--- NOTE | 2024-07-25 14:13 | PM.DCS ---
Discharge Providers Date of Admission: 07/19/24 12:33 Date of Discharge: 07/21/24 Attending Provider at Admission: Clyde Coates Attending Provider at Discharge: Clyde Coates Primary Care Provider: JILLIAN Farrell Diagnoses at Discharge Discharge Diagnosis (1) Hypoxemia: Status: Resolved (2) Community acquired bacterial pneumonia: Status: Resolved (3) Insomnia: Status: Resolved Qualifiers: Insomnia type: unspecified Qualified Code(s): G47.00 - Insomnia, unspecified (4) Anxiety and depression: Status: Resolved (5) Type 2 diabetes mellitus: Status: Acute Qualifiers: Diabetes mellitus group home insulin use: without computer terminal operator use Diabetes mellitus complication status: without complication Qualified Code(s): E11.9 - Type 2 diabetes mellitus without complications Reason for Visit Reason for Visit: cough, congestion Hospital Course Hospital Course 59-year-old female with a past medical history of diabetes mellitus type 2, hypertension, anxiety, depression, and insomnia, presents with cough and shortness of breath for the past two weeks. Patient describes productive cough with yellow sputum. Associated symptoms include fever (highest recorded temperature of 102.4?F), decreased appetite, and epigastric abdominal pain. Patient denies chest pain, nausea, or vomiting. Patient noted one episode of diarrhea. Noted recent travel to [place] and [place] two weeks ago. Patient was taking metformin and Januvia for diabetes, but stopped and was using herbs. Patient also stopped taking lisinopril for hypertension, as well as glimepiride, gabapentin, Wellbutrin, and trazodone. Blood sugars have been close to and sometimes over 300 since becoming ill, previously 100-120. Initial evaluation in the ER revealed: - Laboratory Findings: WBC 14.0 (elevated), hemoglobin 12 g/dL, hematocrit 39%, platelets 417, sodium 134 mEq/L, potassium 4.0 mEq/L, chloride 96 mEq/L, bicarbonate 25 mEq/L, BUN 8 mg/dL, creatinine 0.6 mg/dL, liver function tests normal, procalcitonin 0.11 ng/mL, influenza negative, RSV negative, COVID-19 negative, blood glucose 297 mg/dL. - Imaging Studies: Chest x-ray showing bibasilar pneumonia with patchy infiltrates in both lungs. Upper lung nichols clear. Patient was requiring supplemental oxygen in the emergency room with exertion of 1 to 2 L. She was admitted. Started on Levaquin 750 mg daily. Respiratory panel was done which showed coronavirus to be positive. A1c was found to be 8.9%. Patient was started on sliding scale insulin. 07/20 Overnight she stated that she did feel somewhat better however continued to have a cough. Productive of yellow sputum. Remained on 2 L of O2 via nasal cannula. Plan to continue to wean patient's oxygen as tolerated. Sputum culture was sent. Plan to discharge patient once able to wean oxygen. 07/21 Patient continued to improve. Was wanting to be discharge home on oxygen which was arranged. Emperically was continued on oral antibiotics at discharge. Discussed with her to follow up with PCP after discharge. # Community-Acquired Pneumonia / Coronavirus + Bibasilar pneumonia with patchy infiltrates on chest x-ray, accompanied by fever, productive cough with yellow sputum, and leukocytosis. Respiratory panel positive for coronavirus ([id number]). Patient showing mild clinical improvement on day 2 but continues to require supplemental oxygen. Plan: - Blood cultures (pending) - Sputum culture and Gram stain (sent) - Procalcitonin level (0.11 ng/mL, low likelihood of bacterial infection) - Follow-up chest x-ray in 6-8 weeks if clinically improved Tx: - Continue Levofloxacin 750 mg daily given duration of symptoms. - Supplemental oxygen via nasal cannula - Acetaminophen PRN for fever/pain - Home oxygen was arranged at discharge # Uncontrolled Type 2 Diabetes Mellitus Patient discontinued metformin and Januvia, with blood glucose readings approaching 300 mg/dL during illness. A1c 8.9% indicates poor control. Plan: - Monitor blood glucose QACHS - A1c already checked (8.9%) Tx: - Continue sliding scale insulin while inpatient - Agreeable to resume home regimen at discharge - Will add Lantus 10 units at bedtime during stay however wanted to resume oral - Blood glucose goal 140-180 mg/dL during hospitalization - Diabetes education - Metformin was prescribed. # Hypertension Elevated blood pressure in setting of medication non-adherence. - Monitor blood pressure q4h Tx: - Resume home antihypertensive - Home monitoring discussed. Medication Non-adherence - Patient has discontinued all prescribed medications, contributing to current presentation. Plan: [place] on medication adherence Discharged in stable condition once home oxygen was arranged. Physical Exam Narrative: - General: NAD - HEENT: Normocephalic/atraumatic. PERRLA. EOMI. No scleral icterus. Mucous membranes moist. - Neck: Supple. No lymphadenopathy. - Cardiovascular: Regular rate and rhythm. No murmurs, rubs, or gallops. - Lungs: Bibasilar crackles. No wheezes or rhonchi. - Neurological: Alert and oriented. Speech clear. Strength 5/5 in all extremities. - Skin: Warm and dry. No rashes or lesions. Discharge Data Studies Completed and Pending Completed Studies During Hospitalization Category Date Time Status XR chest 1V portable [id number] Stat Exams 07/19/24 09:47 Completed Pending at discharge Category Date Time Status Sputum Culture and Gram Stain Routine Lab 07/20/24 06:27 Results Radiology Impressions Chest X-Ray 07/19/24 09:47 IMPRESSION: Bibasilar pneumonia Laboratory Results WBC 14.07 10^3/uL (3.29-11.43) H 07/19/24 10:01 RBC 4.69 10^6/uL (3.85-5.65) 07/19/24 10:01 Hgb 12.70 g/dL (11.27-16.99) 07/19/24 10:01 Hct 39.4 % (36-47) 07/19/24 10:01 MCV 84.0 fl (85-98) L 07/19/24 10:01 MCH 27.1 pg (27-33) 07/19/24 10:01 MCHC 32.2 g/dL (30-55) 07/19/24 10:01 RDW 12.5 % (12.1-15.1) 07/19/24 10:01 Plt Count 417 10^3/cmm (157-399) H 07/19/24 10:01 MPV 10.3 fL (7.4-10.4) 07/19/24 10:01 Neut % (Auto) 74.7 % 07/19/24 10:01 Lymph % (Auto) 16.3 % 07/19/24 10:01 [place] % (Auto) 6.4 % 07/19/24 10:01 Eos % (Auto) 0.3 % 07/19/24 10:01 Baso % (Auto) 0.7 % 07/19/24 10:01 Neut # (Auto) 10.51 10^3/uL (1.8-7.7) H 07/19/24 10:01 Lymph # (Auto) 2.3 10^3/uL (0.8-4.8) 07/19/24 10:01 [place] # (Auto) 0.9 10^3/uL (0.2-0.9) 07/19/24 10:01 Eos # (Auto) 0.0 10^3/uL (0.0-0.8) 07/19/24 10:01 Baso # (Auto) 0.1 10^3/uL (0.0-0.1) 07/19/24 10:01 Nucleated RBC % (auto) 0 % 07/19/24 10:01 Nucleated RBCs # 0.0 /100WBC 07/19/24 10:01 Sodium 135 mmol/L (136-145) L 07/21/24 05:21 Potassium 3.9 mmol/L (3.5-5.1) 07/21/24 05:21 Chloride 99 mmol/L (98-107) 07/21/24 05:21 Carbon Dioxide 24 mmol/L (22-29) 07/21/24 05:21 Anion Gap 15.9 (5-19) 07/21/24 05:21 BUN 9 mg/dL (8-23) 07/21/24 05:21 Creatinine 0.4 mg/dL (0.5-0.9) L 07/21/24 05:21 GFR Calculation 162.3 mL/min (90-130) H 07/21/24 05:21 Glucose 182 mg/dL (65-115) H 07/21/24 05:21 POC Glucose 180 mg/dL (70-110) H 07/21/24 16:29 Estimat Average Glucose 209 07/20/24 03:02 Hemoglobin A1c 8.9 % (4.0-6.0) H 07/20/24 03:02 Calculated Osmolality 283 mOsm/kg (285-295) L 07/21/24 05:21 Lactic Acid 1.3 mmol/L (0.5-2.2) 07/19/24 10:01 Calcium 8.9 mg/dL (8.5-10.5) 07/21/24 05:21 Total Bilirubin 0.3 mg/dL (0.15-1.2) 07/21/24 05:21 AST 16 U/L (0-32) 07/21/24 05:21 ALT 10 U/L (0-33) 07/21/24 05:21 Alkaline Phosphatase 37 U/L (35-105) 07/21/24 05:21 Total Protein 6.8 g/dL (6.6-8.7) 07/21/24 05:21 Albumin 3.1 g/dL (3.5-5.2) L 07/21/24 05:21 Globulin 3.7 g/dL (1.3-4.6) 07/21/24 05:21 Procalcitonin 0.11 ng/mL (0-0.5) 07/19/24 10:01 Adenovirus (PCR) Not detected (NOT DETECT) 07/20/24 06:27 C. pneumoniae DNA (PCR) Not detected (NOT DETECT) 07/20/24 06:27 Coronavirus 229E (PCR) Detected (NOT DETECT) A 07/20/24 06:27 Human Metapneumovir PCR Not detected (NOT DETECT) 07/20/24 06:27 Influenza A (H1) PCR Not detected (NOT DETECT) 07/20/24 06:27 Influenza A (PCR) Negative (Negative) 07/19/24 09:57 Influ A (H1/09) PCR Not detected (NOT DETECT) 07/20/24 06:27 Influenza A (H3) PCR Not detected (NOT DETECT) 07/20/24 06:27 Influenza Type A (PCR) Not detected (NOT DETECT) 07/20/24 06:27 Influenza Type B (PCR) Not detected (NOT DETECT) 07/20/24 06:27 M. pneumoniae (PCR) Not detected (NOT DETECT) 07/20/24 06:27 Parainfluenza 1 (PCR) Not detected (NOT DETECT) 07/20/24 06:27 Parainfluenza 2 (PCR) Not detected (NOT DETECT) 07/20/24 06:27 Parainfluenza 3 (PCR) Not detected (NOT DETECT) 07/20/24 06:27 Parainfluenza 4 (PCR) Not detected (NOT DETECT) 07/20/24 06:27 RSV (PCR) Negative (Negative) 07/19/24 09:57 RSV Type A (PCR) Not detected (NOT DETECT) 07/20/24 06:27 RSV Type B (PCR) Not detected (NOT DETECT) 07/20/24 06:27 Entero/Rhino (PCR) Not detected (NOT DETECT) 07/20/24 06:27 SARS-CoV-2 (PCR) Not detected (NOT DETECT) 07/20/24 06:27 Vitals Last Vital Signs Temp 98.2 F 07/21/24 18:08 Pulse 82 07/21/24 18:08 Resp 17 07/21/24 18:08 BP 146/83 07/21/24 18:08 Pulse Ox 94 07/21/24 18:08 O2 Del Method Nasal Cannula 07/21/24 16:00 O2 Flow Rate 2 07/21/24 10:40 Discharge Plan Discharge Patient Disposition: Home Condition: Stable Prescriptions: New lisinopril 20 mg Tablet 20 mg PO DAILY Qty: 30 0RF metformin 500 mg tablet 500 mg PO BID Qty: 60 0RF Continued Amino Acid Capsule 1 cap PO DAILY Rx Instructions: 3000mg omega-3 fatty acids [Super Protivin-3] 1,000 mg Capsule 1,000 mg PO DAILY Magnesium Complex 300 mg magnesium Tablet 300 mg PO DAILY Curalin 180 180 mg PO DAILY Discharge Orders: Discharge Order (Routine); Ordered 07/21/24 Ordered By: Clyde Coates Other Ambulatory Orders: DME: Oxygen (Order) Location: None Selected Ordered By: Clyde Coates Referrals: [facility] [Outside] Jorge Aragon FNP-C [Nurse Practitioner] - 07/28/24 4:20 am (APPOINTMENT AT [facility]) Patient Instructions: Lisinopril (By mouth), Metformin (By mouth), Levofloxacin (By mouth), Using Oxygen at Home (DC), Community Acquired Pneumonia (DC), Hypoxemia (DC), Opioid Safety, Pain Management Discharge Attestations Time Spent in Discharge Care*: greater than 30 min Status at Discharge: Cognitive status at discharge: cognitively intact, Behavioral status at discharge: cooperative, Functional status at discharge: independent ambulation, Overall status at discharge: patient is progressing back to baseline Quality Metrics Clinical Quality Measures [ No reported AMI, CVA or VTE this stay] Coding Level of Care Code Acute Code for g Fwd Diagnoses Hypoxemia R09.02 Community acquired bacterial pneumonia J15.9 Insomnia, unspecified type G47.00 Insomnia type: unspecified Anxiety and depression F41.9; F32.9 Type 2 diabetes mellitus without complication, without long-term current use of insulin E11.9 Diabetes mellitus computer terminal operator insulin use: without group home use Diabetes mellitus complication status: without complication
== END 2024-07-21 17:00 | disposition home or self-care (01) | DRG 194 ==
LOC: ER 13:28 → MEDSURG 14:41
PROVIDERS: Admitting Provider Hospitalist; Emergency Provider Emergency Medicine; PCP Nurse Practitioner Family; Visit Provider Hospitalist
DX: J15.9 Unspecified bacterial pneumonia (principal); Z68.41 Body mass index [BMI] 40.0-44.9, adult; R09.02 Hypoxemia; G47.00 Insomnia, unspecified; F41.9 Anxiety disorder, unspecified; F32.A Depression, unspecified; E11.9 Type 2 diabetes mellitus without complications; I10 Essential (primary) hypertension; T50.916A Underdosing of multiple unspecified drugs, medicaments and biological substances, initial encounter; E66.9 Obesity, unspecified; Z79.84 Long term (current) use of oral hypoglycemic drugs; Z91.128 Patient's intentional underdosing of medication regimen for other reason
CPT/HCPCS: 36415; 36416; 71045; 80048; 80053; 82962; 83036; 83605; 84145; 85025; 87040; 87070; 87205; 87486; 87581; 87633; 87637; 94640; 94664; 94760; 96365; 96372; 99285; J1650; J1815; J1956; J7030; J7120; J9999